=== PATIENT | male | born 1975 | race Caucasian/White ===

== ENCOUNTER 2019-07-25 07:01 | Day surgery (SDC) | payer BC ==
[~2019-07-25] VITALS: Ht 172.7 cm; Wt 89.1 kg
--- NOTE | ~2019-07-25 | OP ---
PATIENT NAME: SUKHI ONEILL MEDICAL RECORD: [id number] :75 [facility] DATE: SURGEON: JAMAAL VILLEGAS MD DATE OF OPERATION: 07/25/2019 PROCEDURE: Colonoscopy with ileoscopy and biopsy. INDICATIONS: Mr. Oneill is a delightful 43-year-old gentleman who has had approximate 4-month history of hematochezia and change in bowel habits with loose stools. He has a history of remote colonoscopy in 1995. He presents for outpatient colonoscopy. PREMEDICATIONS: Total IV anesthesia (propofol 380 mg). INSTRUMENT: Olympus videocolonoscope, slim adjustable. PROCEDURE AND FINDINGS: After receiving informed consent, Mr. Oneill was placed in left lateral decubitus position, sedated as per anesthesia. After achieving adequate level of sedation, digital rectal exam was performed that showed no external hemorrhoidal tags, fissures or fistulas, normal sphincter tone, no palpable rectal masses. Colonoscope was introduced per rectally and advanced to the cecum without difficulty. The cecum, IC valve, and appendiceal orifice were identified and appeared normal. The terminal ileum was intubated and the distal small bowel mucosa was notable for minimal patchy erythema and biopsies were obtained. Biopsies were obtained from the ascending colon to rule out collagenous colitis. There was mild patchy erythema noted in the rectum and biopsies were obtained. Retroflexion in rectum showed [id number] internal hemorrhoids, no active bleeding. A good prep was present and liquid was collected from the colon and sent for study. Withdrawal time was 10 minutes. He tolerated the procedure well, no immediate complications. ASSESSMENT: 1. Mild nonspecific inflammation involving the terminal ileum and rectum, status post biopsy. 2. Internal hemorrhoids grade II, likely source of hematochezia. RECOMMENDATIONS: 1. Anucort-HC suppositories 1 per rectum b.i.d. for 14 days. 2. Stool to be sent for culture and sensitivity, O&P, CDT and fecal white blood cell. 3. Tentatively recommend screening colonoscopy in 10 years. 4. Celiac serology. TRANSINT:[id number] Voice Confirmation ID: [id number] DOCUMENT ID: [id number] JAMAAL VILLEGAS MD CC: [id number] DICTATION DATE: 07/25/19921 BUILD MANAGER: 07/25/19 1158 [facility] 07/25/19 [facility] [address] [place] [address]
[2019-07-25 07:37] LABS: HEMATOCRIT 45.6 % (42.0-54.0); HEMOGLOBIN 14.1 g/dL (13.5-17.5); MCH 23.9 pg (26.0-34.0); MCHC 30.9 g/dL (31.0-37.0); MCV 77.2 fL (80.0-100.0); MEAN PLATELET VOLUME 9.2 fL (7.4-10.4); PLATELET COUNT 282 10x3/uL (130-400); RBC 5.91 10x6/uL (4.20-6.10); WBC 4.4 10x3/uL (4.8-10.8)
[2019-07-25 07:48] LABS: CALC OSMOLALITY 278 mosm/kg (275-300); CALCIUM 8.8 mg/dL (8.5-10.1); CARBON DIOXIDE 32.7 mmol/L (21.0-32.0); CHLORIDE - SERUM 102 mmol/L (98-107); CREATININE - SERUM 1.1 mg/dL (0.6-1.3); GLUCOSE 99 mg/dL (74-106); POTASSIUM - SERUM 3.8 mmol/L (3.5-5.1); SODIUM 140 mmol/L (136-145); UREA NITROGEN 13 mg/dL (7-18); eGFR NON AFRICAN AMERICAN 78 mL/min (90-120)
[2019-07-25] MEDS ORDERED: ANASTROZOLE 1 MG (07:55)
[2019-07-25 08:00] VITALS: BP 154/86; Ht 172.7 cm; Wt 89.1 kg
--- NOTE | 2019-07-25 10:22 | NUR ---
[address] NEW [address] ORDERS PER DR VILLEGAS POST OP WILL BE RUN ON BLOOD DRAWN EARLIER TODAY.
[2019-07-25 10:24] LABS: % SATURATION 13 % (15-55); IRON 62 ug/dl (35-150); TOTAL IRON BIND CAPACITY 467 ug/dl (260-445); UNSAT IRON BIND CAPACITY 405 ug/dl (150-375)
[2019-07-25 10:39] LABS: THYROID STIMULATING HORMONE 0.97 uIU/mL (0.36-3.74)
--- NOTE | 2019-07-25 12:39 | NUR ---
1002 IV DC'D. CATHETER TIP INTACT. NO BLEEDING AT SITE. BANDAID APPLIED. RECEIVED NOTIFICATION FROM THE LAB THAT POST PROCEDURE LABS ORDERED BY DR VILLEGAS CAN BE RUN ON BLOOD DRAWN THIS AM UPON ADMISSION. 1017 PT HAS DISCHARGE INSTRUCTIONS AND VOICES UNDERSTANDING OF INSTRUCTIONS.
[2019-07-25 12:52] LABS: ANISOCYTOSIS OCC; BASOPHILS 2 % (0-2); EOSINOPHILS 1 % (0-7); LYMPHOCYTES 38 % (15-50); MONOCYTES 4 % (2-11); NEUTROPHILS 55 % (40-80); PLATELET ESTIMATE NORMAL
== END 2019-07-25 10:17 | disposition home or self-care (01) ==
LOC: D.OPS 07:01
PROVIDERS: Anesthesiology; ATTEND Internal Medicine Gastroenterology
DX: K92.1 Melena (principal); R19.4 Change in bowel habit; K64.1 Second degree hemorrhoids